=== PATIENT | male | born 1980 | race Caucasian/White ===

== ENCOUNTER 2019-01-08 16:50 | Inpatient (IN) | payer OTHER ==
[~2019-01-08] VITALS: Ht 185.4 cm; Wt 117.9 kg
--- NOTE | 2019-01-08 17:22 | NUR ---
RISHABH LAINEZ AT BEDSIDE FOR MSE.
[2019-01-08] MEDS ORDERED: IPRATROPIUM BROMIDE 0.5 MG/2.5 ML NEBU NEB ONE (17:30)
[2019-01-08] MEDS ORDERED: ALBUTEROL SULFATE 2.5 MG/ 0.5 ML NEBU NEB ONE (17:30)
--- NOTE | 2019-01-08 17:31 | NUR ---
Pt states no having a list of Meds, but his friend will bring/call in the list.
--- NOTE | 2019-01-08 17:34 | NUR ---
PT TAKEN TO RADIOLOGY FOR IMAGING.
[2019-01-08] MEDS ORDERED: ALBUTEROL SULFATE 2.5 MG/3 ML NEBU ONE (17:41)
[2019-01-08] MEDS ORDERED: IPRATROPIUM BROMIDE 0.5 MG/2.5 ML NEBU ONE (17:41)
--- NOTE | 2019-01-08 17:42 | NUR ---
PT BACK IN ER FROM RADIOLOGY.
[2019-01-08 17:50] LABS: BASOPHILS # (AUTO) 0.1 K/uL (0.0-8.0); BASOPHILS % (AUTO) 0.6 % (0.0-2.0); EOSINOPHILS # (AUTO) 0.3 K/uL (0.0-0.7); EOSINOPHILS % (AUTO) 2.2 % (0.0-7.0); HEMATOCRIT 33.1 % (36.7-47.1); HEMOGLOBIN 11.1 g/dL (12.5-16.3); LYMPHOCYTES # (AUTO) 2.2 K/uL (20.0-40.0); LYMPHOCYTES % (AUTO) 17.9 % (20.5-51.5); MEAN CORPUSCULAR HEMOGLOBIN 28.2 uug (23.8-33.4); MEAN CORPUSCULAR HGB CONC 34 g/dL (32.5-36.3); MEAN CORPUSCULAR VOLUME 84.2 fL (73.0-96.2); MONOCYTES # (AUTO) 1.3 K/uL (2.0-10.0); MONOCYTES % (AUTO) 11.1 % (0.0-11.0); NEUTROPHILS # (AUTO) 8.3 K/uL (1.8-8.9); NEUTROPHILS % (AUTO) 68.2 % (38.5-71.5); PLATELET COUNT (AUTO) 525 K/uL (152-348); RED BLOOD CELL COUNT(AUTO) 3.93 MIL/uL (4.06-5.63); WHITE BLOOD COUNT (AUTO) 12.1 K/uL (3.6-10.2)
--- NOTE | 2019-01-08 17:51 | NUR ---
US TECH AT BEDSIDE.
[2019-01-08 17:57] LABS: CREATININE 0.9 mg/dL (0.6-1.3)
[2019-01-08 18:10] LABS: BILIRUBIN,DIRECT 0.1 mg/dL (0.0-0.2); BILIRUBIN,TOTAL 0.2 mg/dL (0.2-1.0); TOTAL PROTEIN, SERUM 7.5 g/dL (6.4-8.2)
--- NOTE | 2019-01-08 18:23 | NUR ---
PAGED EPIC FOR PANEL CALL - AWAITING CALLBACK. ATTEMPT 1.
[2019-01-08] MEDS ORDERED: [UNRECOGNIZED DRUG - OTHER] PO (18:27)
[2019-01-08] MEDS ORDERED: BACL10TA PO (18:27)
[2019-01-08] MEDS ORDERED: GABA-534 PO ×2 (18:27)
[2019-01-08] MEDS ORDERED: [UNRECOGNIZED DRUG - OTHER] PO (18:27)
[2019-01-08] MEDS ORDERED: [UNRECOGNIZED DRUG - REMARK] TP (18:27)
[2019-01-08] MEDS ORDERED: NAPR220T66 PO (18:27)
[2019-01-08] MEDS ORDERED: DICL100G16 TP (18:27)
[2019-01-08] MEDS ORDERED: PERP1TAB7 PO (18:27)
--- NOTE | 2019-01-08 18:28 | NUR ---
ER SPEAKING W/ MILAGROS PAGAN, TOUR CONDUCTOR, RE PT'S ADMISSION.
[2019-01-08] MEDS ORDERED: FUROSEMIDE 20 MG/2 ML VIAL IV ONE (18:30)
[2019-01-08] MEDS ORDERED: FUROSEMIDE 40 MG/4 ML VIAL ONE (18:37)
[2019-01-08] MEDS ORDERED: ACETAMINOPHEN 325 MG TABLET PO PRN ×2 (19:00→20:00)
[2019-01-08] MEDS ORDERED: HYDROCODONE/APAP 5-325MG TABLET PO PRN ×2 (19:00→20:00)
[2019-01-08] MEDS ORDERED: ONDANSETRON 4 MG/2 ML VIAL IV PRN ×2 (19:00→20:00)
[2019-01-08] MEDS ORDERED: Z GUARD REMEDY PASTE 57 GM TUBE TOP PRN ×2 (19:00→20:00)
[2019-01-08] MEDS ORDERED: MAGNESIUM HYDROXIDE 30 ML LIQUID UDC PO PRN ×2 (19:00→20:00)
[2019-01-08] MEDS ORDERED: ENOXAPARIN SODIUM 40 MG/0.4 ML DISP.SYRIN SQ SCH ×2 (19:00→21:00)
--- NOTE | 2019-01-08 19:08 | NUR ---
SHIFT REPORT GIVEN TO GLADYS Kahn RN. PT SLEEPING COMFORTABLY IN BED. VSS.
--- NOTE | 2019-01-08 19:41 | NUR ---
Pt. admitted to Telemetry, under care of Gisela Lewis. Diagnosis: Shortness of Breath. Belongs List completed
--- NOTE | 2019-01-08 20:20 | NUR ---
Patient is in the room, arrived on a gurney. Iv was flushed, placed on the Tele monitor, will begin admission.
[2019-01-08 20:32] VITALS: BP 109/70
--- NOTE | 2019-01-08 21:00 | NUR ---
Patient was assessed and history was taken. AOx4, drowsy, C/o pain in the BLE, pitting edema and discoloration noted in the BLE, painful to touch, Pictures were taken and placed in the chart. Patient was given a cup for a urine sample and instructed on clean catch procedure. No acute distress noted, comfort and safety provided.
--- NOTE | 2019-01-08 23:45 | NUR ---
Patient has persistent non-productive cough, asking for cough lozenges. Gisela Lewis was notified, ordered Cepacol Q2h.
[2019-01-09] VITALS: BP 110/62
--- NOTE | 2019-01-09 00:05 | NUR ---
Patient is sitting on the bed after vomiting. Reported that he had an acidic taste in his mouth after coughing, then he vomited about 70 ml. Prior to the even the patient ate 18 fl oz of yogurt and 2 pudding cups. Patient was given cold water and advised to keep HOB elevated. Oral care supplies were provided.
[2019-01-09] MEDS: BENZOCAINE/MENTH/CETYLPYRD LOZENGE MM PRN ×2 (00:07→05:13)
--- NOTE | 2019-01-09 02:00 | NUR ---
Patient ambulated to the bathroom unassisted. Reports feeling better, asked to remove oxygen, fell asleep
[2019-01-09 04:00] VITALS: BP 106/64
--- NOTE | 2019-01-09 04:05 | NUR ---
Patient was assessed and history was taken. AOx4, drowsy, C/o pain in the BLE, pitting edema and discoloration noted in the BLE, painful to touch.
--- NOTE | 2019-01-09 05:09 | NUR ---
patient woke up, went to the bathroom, C/o lower back pain and BLE pain. [place] given.
[2019-01-09 05:29] LABS: *BILIRUBIN,URIN NEGATIVE (NEGATIVE); *BLOOD, URINE NEGATIVE (NEGATIVE); *CLARITY,URINE CLEAR (CLEAR); *COLOR,URINE YELLOW (YELLOW); *KETONES,URINE NEGATIVE (NEGATIVE); *UROBILINOGEN,URINE 0.2 E.U./dl (NORMAL); LEUKOCYTE ESTERASE ,URINE NEGATIVE (NEGATIVE); NITRITE, URINE NEGATIVE (NEGATIVE); PH,URINE 7.5 (5.0-8.0); UGLUCOSE NEGATIVE (NEGATIVE)
[2019-01-09] MEDS ORDERED: MAG HYDROX/AL HYDROX/SIMETH 30 ML LIQUID UDC PO ONE (08:30)
--- NOTE | 2019-01-09 08:38 | NUR ---
-patient received in bed asleep. side rails up x 2. Bed in lowest position. Bed alarm on. No apparent distress noted.
[2019-01-09] MEDS ORDERED: PANTOPRAZOLE SODIUM 40 MG TABLET.DR PO SCH (08:45)
[2019-01-09 10:44] VITALS: BP 124/73
[2019-01-09] MEDS ORDERED: CALC-12 PO (12:47)
[2019-01-09] MEDS ORDERED: METH4TAB21 PO (12:47)
[2019-01-09] MEDS ORDERED: PANT40TA2 PO (12:47)
--- NOTE | 2019-01-09 16:00 | NUR ---
Patient was given discharge instructions, iv removed, and pharmacy consult was completed. Patient refused to have a follow up appointment with primary care provider. Patient was taken to discharge area where he was met by a friend to be taken home.
[2019-01-09 16:44] VITALS: BP 115/61
== END 2019-01-09 16:00 | disposition home or self-care (01) | DRG 243 ==
LOC: ER 16:50 → TELE3 20:04 → MEDSURG3 01-09 10:14
PROVIDERS: ADMIT Nurse Practitioner Acute Care; ATTEND Nurse Practitioner Acute Care
DX: K21.9 Gastro-esophageal reflux disease without esophagitis (principal); J96.01 Acute respiratory failure with hypoxia; E44.0 Moderate protein-calorie malnutrition; D68.59 Other primary thrombophilia; E66.01 Morbid (severe) obesity due to excess calories; G90.523 Complex regional pain syndrome I of lower limb, bilateral; M94.0 Chondrocostal junction syndrome [Tietze]; R06.01 Orthopnea; R60.0 Localized edema; Z68.34 Body mass index [BMI] 34.0-34.9, adult; D63.8 Anemia in other chronic diseases classified elsewhere; Z79.899 Other long term (current) drug therapy
CPT/HCPCS: 36415; 70030-TC; 71046; 83605; 85025; 85730; 87086; 93005; 93307; A4663; G0378; J1650; J1940; J3590

== ENCOUNTER 2019-01-13 13:26 | Emergency (ER) | payer OTHER ==
[~2019-01-13] VITALS: Ht 185.4 cm; Wt 113.4 kg
[~2019-01-13 13:26] MED LIST: BACL10TA PO; CALC-12 PO; DICL100G16 TP; GABA-534 PO; METH4TAB21 PO; NAPR220T66 PO; PANT40TA2 PO; PERP1TAB7 PO; [UNRECOGNIZED DRUG - OTHER] PO; [UNRECOGNIZED DRUG - OTHER] PO; [UNRECOGNIZED DRUG - REMARK] TP
--- NOTE | 2019-01-13 13:50 | NUR ---
PT IS IN ROOM #2B. DR VYAS EVALUATED THE PT.
[2019-01-13] MEDS ORDERED: AZITHROMYCIN 250 MG TABLET PO ONE (14:00)
[2019-01-13] MEDS ORDERED: CEFTRIAXONE 500 MG VIAL IM ONE (14:00)
[2019-01-13] MEDS ORDERED: AZITHROMYCIN 250 MG TABLET ONE (14:06)
[2019-01-13] MEDS ORDERED: CEFTRIAXONE 500 MG VIAL ONE (14:07)
--- NOTE | 2019-01-13 14:14 | NUR ---
PT WAS D/C'd TO HOME. D/C INSTRUCTIONS GIVEN TO THE PT.
[2019-01-13 14:15] VITALS: BP 141/77
== END 2019-01-13 14:40 | disposition home or self-care (01) ==
LOC: ER 13:26
DX: J20.9 Acute bronchitis, unspecified (principal); F41.9 Anxiety disorder, unspecified; F32.9 Major depressive disorder, single episode, unspecified; Z79.899 Other long term (current) drug therapy
CPT/HCPCS: 96372; 99283; J0696; A4663; Q0144

== ENCOUNTER 2019-01-17 00:07 | Emergency (ER) | payer OTHER ==
[~2019-01-17] VITALS: Ht 185.4 cm; Wt 117.9 kg
--- NOTE | 2019-01-17 00:34 | NUR ---
Dr. Sanchez at bedside for MSE.
[2019-01-17] MEDS ORDERED: ONDANSETRON 4 MG/2 ML VIAL ONE (00:42)
[2019-01-17] MEDS ORDERED: HYDROMORPHONE 2 MG/1 ML DISP.SYRIN ONE (00:42)
[2019-01-17] MEDS ORDERED: HYDROMORPHONE 1 MG/1 ML DISP.SYRIN IM ONE (00:45)
[2019-01-17] MEDS ORDERED: ONDANSETRON 4 MG/2 ML VIAL IM ONE (00:45)
--- NOTE | 2019-01-17 00:48 | NUR ---
Xray at bedside.
--- NOTE | 2019-01-17 01:24 | NUR ---
Patient discharged to home in stable conditon. Written and verbal after care instructions given. Patient verbalizes understanding of instructions. Pt ambulated out of ER with steady gait, no acute signs of distress, VSS, all belongings taken, accompanied by friend, to be driven home by friend via private vehicle.
[2019-01-17 01:29] VITALS: BP 110/75
== END 2019-01-17 01:29 | disposition home or self-care (01) ==
LOC: ER 00:11
DX: S20.212A Contusion of left front wall of thorax, initial encounter (principal); F41.9 Anxiety disorder, unspecified; F32.9 Major depressive disorder, single episode, unspecified; Z79.899 Other long term (current) drug therapy; X58.XXXA Exposure to other specified factors, initial encounter; Y93.89 Activity, other specified; Y92.89 Other specified places as the place of occurrence of the external cause; Y99.8 Other external cause status
CPT/HCPCS: 71101; 96372 ×2; 99283; J1170; J2405; A4663